=== PATIENT | female | born 1965 | race African-American/Black ===

== ENCOUNTER 2016-12-18 06:16 | Emergency (ER) | payer MEDICAID ==
[~2016-12-18] VITALS: Ht 172.7 cm; Wt 75.0 kg
[2016-12-18] MEDS ORDERED: HYDROCODONE/ACETAMINOPHEN 5/325MG TABLET PO ONE (07:30)
[2016-12-18] MEDS ORDERED: IBUPROFEN 600MG TABLET PO ONE (08:30)
[2016-12-18 10:16] VITALS: BP 120/86
== END 2016-12-18 10:17 | disposition home or self-care (01) ==
LOC: ER 06:16
DX: S10.93XA Contusion of unspecified part of neck, initial encounter (principal); S20.229A Contusion of unspecified back wall of thorax, initial encounter; F17.200 Nicotine dependence, unspecified, uncomplicated; W01.0XXA Fall on same level from slipping, tripping and stumbling without subsequent striking against object, initial encounter; Y93.89 Activity, other specified; Y92.89 Other specified places as the place of occurrence of the external cause; Y99.8 Other external cause status
CPT/HCPCS: 72125; 72128; 72131; 99284; Z7610